=== PATIENT | male | born 1965 | race African-American/Black ===

== ENCOUNTER 2020-01-08 04:05 | Emergency (ER) | payer SELFPAY ==
[2020-01-08 04:18] VITALS: BP 152/95
[2020-01-08] MEDS ORDERED: BACITRACIN ZINC OINTMENT 15 GM TP ONE (04:45)
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
== END 2020-01-08 04:55 | disposition home or self-care (01) ==
LOC: ER 04:05
DX: S50.312A Abrasion of left elbow, initial encounter (principal); S80.212A Abrasion, left knee, initial encounter; R51 Headache; M54.2 Cervicalgia; Y04.2XXA Assault by strike against or bumped into by another person, initial encounter; Y92.009 Unspecified place in unspecified non-institutional (private) residence as the place of occurrence of the external cause; F17.210 Nicotine dependence, cigarettes, uncomplicated
CPT/HCPCS: 99283; J3490